=== PATIENT | female | born 1955 | race Caucasian/White ===

== ENCOUNTER 2021-05-22 01:03 | Emergency (ER) | payer MEDICARE, OTHER ==
[2021-05-22] MEDS ORDERED: Ondansetron 4 MG/2 ML SDV IVPUSH ONE (01:29)
[2021-05-22] MEDS ORDERED: Sodium Chloride 0.9% 1,000 ML IV ONE (01:29)
[2021-05-22] MEDS ORDERED: cefTRIAXone 500 MG in Lidocaine 1% 1 ML IM ONE (01:29)
[2021-05-22] MEDS ORDERED: Loperamide 2 MG Cap PO ONE (01:43)
[2021-05-22 02:02] LABS: CARBON DIOXIDE,CO2 25.7 mmol/L (21.0-32.0); POTASSIUM,K 4.5 mmol/L (3.5-5.1)
== END 2021-05-22 02:40 | disposition home or self-care (01) ==
LOC: MW.ED 01:03
DX: A05.9 Bacterial foodborne intoxication, unspecified (principal); E86.0 Dehydration
CPT/HCPCS: 36415; 80048; 85025; 96374; 99284; A9270; J2405; J7030